=== PATIENT | male | born 1960 | race Caucasian/White ===

== ENCOUNTER 2020-10-08 06:52 | Observation (INO) ==
[2020-10-08 08:14] LABS: Basophils % 0.5 %; Eosinophils # 0.5 K/mcL (0.0-0.6); Eosinophils % 6.2 %; Hematocrit 46.3 % (37.5-50.1); Hemoglobin 15.9 g/dL (12.9-16.9); Immature Granulocytes % 0.4 % (0-4); Lymphocytes # 1.9 K/mcL (0.6-4.6); Lymphocytes % 25.1 %; Mean Corpuscular HGB Conc 34.3 g/dL (31.6-35.5); Mean Corpuscular Hemoglobin 31.8 pg (28.0-33.3); Mean Corpuscular Volume 92.6 fL (83.0-100.0); Mean Platelet Volume 8.4 fL (9.4-12.4); Monocytes # 0.8 K/mcL (0.0-1.3); Neutrophils # 4.2 K/mcL (1.6-8.9); Platelet Count 347 K/mcL (140-400); Red Cell Distribution Width 13.8 % (11.5-14.5); Segmented Neutrophils % 56.8 %; White Blood Count 7.4 K/mcL (4.3-11.1)
[2020-10-08 09:49] LABS: Acetaminophen < 10 mcg/mL (10-20); Alanine Aminotransferase 112 Units/L (7-52); Albumin 3.9 g/dL (3.5-5.7); Albumin/Globulin Ratio 1.1 (1.1-2.2); Alkaline Phosphatase 125 Units/L (34-104); Aspartate Amino Transferase 68 Units/L (13-39); BUN/Creatinine Ratio 16 (6-26); Bilirubin,Direct 0.1 mg/dL (0.0-0.2); Bilirubin,Indirect 0.3 mg/dL (0.0-1.0); Bilirubin,Total 0.4 mg/dL (0.3-1.0); Blood Urea Nitrogen 14 mg/dL (6-20); Calcium 9.6 mg/dL (8.6-10.3); Carbon Dioxide 28 mEq/L (23-29); Chloride 100 mEq/L (98-107); Ethanol < 10 mg/dL (Less than 10); Globulin 3.4 g/dL (2.4-3.5); Glucose 144 mg/dL (70-105); Osmolality,Calculated 281 (280-300); Potassium 4.6 mEq/L (3.5-5.1); Salicylate < 2.5 mg/dL (15.0-30.0); Sodium 134 mEq/L (136-145); Total Protein 7.3 g/dL (6.4-8.9); eGFR For African Americans > 60 (> 60); eGFR For Non-African Americans > 60 (> 60)
[2020-10-08] MEDS ORDERED: Naloxone 0.4 MG/ML INJ IVP PRN (10:36)
[2020-10-08] MEDS ORDERED: Acetaminophen 325 MG TABLET PO PRN (10:50)
[2020-10-08] MEDS ORDERED: 0.9 % Sodium Chloride 1,000 ML IVC SCH (11:00)
[2020-10-08 11:25] LABS: INR 1.1; Prothrombin Time 13.1 Seconds (9.4-12.1)
[2020-10-08 12:42] LABS: Hepatitis B Surface Antigen Nonreactive (Nonreactive)
[2020-10-08 13:11] LABS: Hepatitis B Core IgM Nonreactive (Nonreactive)
[2020-10-08 13:13] LABS: Hepatitis A Antibody IgM Nonreactive (Nonreactive)
[2020-10-08 14:31] LABS: Hepatitis C Virus Antibody Reactive (Nonreactive)
[2020-10-08] MEDS ORDERED: Ipratropium 1 PUFF INHALER IH SCH (16:00)
[2020-10-08] MEDS ORDERED: *HR* Heparin 5,000 UNIT/ML VIAL SQ SCH (18:00)
[2020-10-08 18:05] VITALS: BP 125/72
== END 2020-10-08 18:34 | disposition home or self-care (01) ==
LOC: EMEROOARM 06:52 → 3BNU 06:52
PROVIDERS: ADMIT Student in an Organized Health Care Education/Training Program; ATTEND Student in an Organized Health Care Education/Training Program